=== PATIENT | male | born 1940 | race Caucasian/White ===

== ENCOUNTER 2019-02-03 11:07 | Emergency (ER) | payer MEDICARE, MEDICAID ==
[~2019-02-03] VITALS: Ht 172.7 cm; Wt 73.0 kg
[2019-02-03] MEDS ORDERED: CYANOCOBALAMIN 1000MCG/ML VIAL IM ONE (12:00)
[2019-02-03] MEDS ORDERED: SODIUM CHLORIDE 0.9% 1000ML BAG (SEPSIS BOLUS) IV ONE (12:00)
[2019-02-03 12:36] LABS: BASOPHILS % 0.3 % (0.0-2.0); EOSINOPHILS % 0.2 % (0.0-5.0); HEMATOCRIT. 37.8 % (42.0-52.0); HEMOGLOBIN. 12.7 g/dL (14.0-18.0); LYMPHOCYTES % 16.5 % (20.0-50.0); MEAN CORPUSCULAR HEMOGLOBIN 30.3 pg (28.0-32.0); MEAN CORPUSCULAR VOLUME 90.1 fL (80.0-94.0); MEAN PLATELET VOLUME 6.3 fl (7.4-10.4); MONOCYTES % 4.1 % (2.0-8.0); NEUTROPHILS % 78.9 % (40.0-76.0); PLATELET 501 x1000/uL (130-400); RED BLOOD CELL COUNT 4.19 mill/uL (4.7-6.1); RED CELL DISTRIBUTION WIDTH 15.1 % (11.6-14.6)
[2019-02-03 12:38] LABS: CHLORIDE 101 mEq/L (98-107)
[2019-02-03 12:43] LABS: ETHANOL BLOOD < 10 mg/dL
[2019-02-03 12:52] LABS: CLARITY URINE CLEAR (CLEAR); COLOR URINE YELLOW (YELLOW); KETONES URINE NEGATIVE (NEGATIVE); LEUKOCYTE ESTERASE URINE NEGATIVE (NEGATIVE); NITRITE URINE NEGATIVE (NEGATIVE); OCCULT BLOOD URINE NEGATIVE (NEGATIVE); PROTEIN URINE NEGATIVE (NEGATIVE); SPECIFIC GRAVITY URINE 1.013 (1.005-1.030); UROBILINOGEN URINE 0.2 E.U./dL (0.2-1.0)
[2019-02-03 13:20] LABS: *AMPHETAMINES SCREEN URINE NEGATIVE (NEGATIVE); *BARBITURATES SCREEN URINE NEGATIVE (NEGATIVE); CANNABINOID URINE SCREEN NEGATIVE (NEGATIVE)
[2019-02-03 13:23] LABS: *COCAINE SCREEN URINE NEGATIVE (NEGATIVE); METHADONE URINE SCREEN NEGATIVE (NEGATIVE)
[2019-02-03 13:25] LABS: OPIATES URINE SCREEN NEGATIVE (NEGATIVE)
[2019-02-03 13:27] LABS: *BENZODIAZEPINES SCREEN URINE NEGATIVE (NEGATIVE); PHENCYCLIDINE URINE SCREEN NEGATIVE (NEGATIVE)
[2019-02-03 18:12] VITALS: BP 128/62
== END 2019-02-03 18:48 | disposition home or self-care (01) ==
LOC: ER 11:07
DX: F10.239 Alcohol dependence with withdrawal, unspecified (principal); Y90.0 Blood alcohol level of less than 20 mg/100 ml; I42.6 Alcoholic cardiomyopathy; J18.9 Pneumonia, unspecified organism; E86.0 Dehydration; R73.9 Hyperglycemia, unspecified; D72.829 Elevated white blood cell count, unspecified; G25.2 Other specified forms of tremor; F41.8 Other specified anxiety disorders; E88.09 Other disorders of plasma-protein metabolism, not elsewhere classified; I11.0 Hypertensive heart disease with heart failure; I50.9 Heart failure, unspecified; R53.82 Chronic fatigue, unspecified; R16.0 Hepatomegaly, not elsewhere classified; D64.9 Anemia, unspecified; D72.810 Lymphocytopenia; D70.9 Neutropenia, unspecified
CPT/HCPCS: 36415; 71045; 80053; 80305; 80320; 81003; 83735; 83880; 84484; 85025; 93005; 96360; 96361; 96372; 99284; J3420; J7030; G0480